=== PATIENT | male | born 1930 | race Caucasian/White ===

== ENCOUNTER 2019-01-10 17:26 | Inpatient (IN) | payer OTHER, MEDICARE ==
[~2019-01-10] VITALS: Ht 167.6 cm; Wt 94.4 kg
[~2019-01-10 17:26] MED LIST: ACID REFLUX MED; ASCO1ER; ATEN25 PO; ATOR40TA; DILT60 PT; ENOX40I SC; KETO60I IV; LEVFLO500 IV; LIDO5TP TOP; LISI20; LORA.5 IV; LOSA25 PO; MAPAP325 MG/10. PO; MELA3 PO; METR500 IV; MULVITMINF; OMEP20ER; OMEPRAZOLE20 MG PO; SIMV40 PO; ZOLP5 PO; [UNRECOGNIZED DRUG - MIXTURE] IV
[2019-01-10] MEDS ORDERED: ASPI81CH PO (17:49)
[2019-01-10] MEDS ORDERED: CARB10OTL BOTHEARS (17:50)
[2019-01-10] MEDS ORDERED: CHOL10002 PO (17:50)
[2019-01-10] MEDS ORDERED: FURO20 PO (17:51)
[2019-01-10] MEDS ORDERED: FINA5 PO (17:51)
[2019-01-10] MEDS ORDERED: THERA1 EACH PO (17:52)
[2019-01-10] MEDS ORDERED: Ginkgo Biloba60 M1 PO (17:52)
[2019-01-10] MEDS ORDERED: Ginseng100 MG PO (17:52)
[2019-01-10] MEDS ORDERED: POTA10T PO (17:54)
[2019-01-10] MEDS ORDERED: Hytrin1 MG PO (17:56)
[2019-01-10] MEDS ORDERED: Triamcinolone A15 G3 TOP (17:57)
[2019-01-10] MEDS ORDERED: Vitamin B Comple1 EA PO (18:20)
[2019-01-10 18:53] LABS: Base Excess Venous 1.3 mmol/L; Bicarbonate Venous 23.9 mmol/L (24.0-30.0); PO2 Venous 52.9 mmHg (38-42); pH Blood Venous 7.28 (7.34-7.37)
[2019-01-11 04:09] LABS: BASOPHILS ABSOLUTE AUTO 0.02 K/mm3 (0.00-0.23); BASOPHILS PERCENT AUTO 0 % (0-2); EOSINOPHILS ABSOLUTE AUTO 0.04 K/mm3 (0.00-0.68); EOSINOPHILS PERCENT AUTO 1 % (0-6); Hematocrit 47.5 % (37.0-53.0); Hemoglobin 13.9 g/dL (13.5-17.5); IMMATURE GRAN ABSOLUTE AUTO 0.02 K/mm3 (0.00-0.10); IMMATURE GRAN PERCENT AUTO 0 % (0-1); LYMPHOCYTES ABSOLUTE AUTO 0.72 K/mm3 (0.84-5.20); LYMPHOCYTES PERCENT AUTO 11 % (21-46); MONOCYTES ABSOLUTE AUTO 0.42 K/mm3 (0.16-1.47); MONOCYTES PERCENT AUTO 7 % (4-13); Mean Corpuscular HGB 29.5 pg (26.0-34.0); Mean Corpuscular HGB Conc 29.3 g/dL (31.5-36.5); Mean Corpuscular Volume 101 fL (80-100); Mean Platelet Volume 11.6 fL (9.1-12.4); NEUTROPHILS ABSOLUTE AUTO 5.21 K/mm3 (1.96-9.15); NEUTROPHILS PERCENT AUTO 81 % (41-73); Platelet Count 112 K/mm3 (150-400); RDW Coefficient Variation 14.6 % (11.7-14.2); RDW Standard Deviation 55.3 fL (35.1-46.3); Red Blood Cell Count 4.71 M/mm3 (4.30-5.90); White Blood Cell Count 6.43 K/mm3 (4.00-11.30)
[2019-01-11 04:46] LABS: Bilirubin, Total 0.7 mg/dL (0.1-1.0); Bun/Creatinine Ratio 33.6 (12.0-20.0); Calcium, Blood 8.3 mg/dL (8.5-10.1); Creatinine, Blood 1.25 mg/dL (0.60-1.20); Globulin, Blood 3.1 g/dL (2.2-4.0); Potassium, Blood 4.8 mmol/L (3.5-5.5); Total Protein, Blood 6.1 g/dL (6.4-8.2)
--- NOTE | 2019-01-11 05:07 | NUR ---
PROVIDER NOTIFIED DR RENAE CALLED REGARDING PT'S HR OF 130'S AFIB DESPITE DIGOXIN DOSING. TOLD PT'S BP HAD RISEN UP TO 130'S SYSTOLICALLY. DR TO PLACE ORDERS FOR DILTIAZEM DRIP.
--- NOTE | 2019-01-11 07:20 | NUR ---
AM ASSESSMENT: Pt resting in bed. LS with fine crackles throughout, sounds gurgly and like he is having a hard time managing his own secretions. Oral suction provided. Pt able to state his birthday and name, states that he is in [place]. Pt disoriented to situation. HR irregular with murmur heard. BT positive. Radial pulses palp, PP very faint. LLE red from cash down and cap refil >3 sec. Family states that he had a wound on this leg and that it looks much better then it has in the past. Slight amount of redness in groin. Pt incontenent of urine. Attends changed and linen changed. Bed alarm on. Call light in reach. WIll mnoitor. Family in room.
--- NOTE | 2019-01-11 08:00 | NUR ---
END OF SHIFT SUMMARY ASSUMED CARE OF PT FROM ED. BP 100'S SYSTOLICALLY. EDDA UP TO 130'S. HR REMAINED AFIB IN 130'S DESPITE 2 DOSES OF ORDERED IV DIGOXIN. DR RENAE CALLED REGARDING THIS, SEE NOTE. PT TRANSFERED TO [facility] FROM [place] DUE TO CARDIZEM DROPPING HIS PRESSURES TO 50/30. CARDIZEM STARTED AT 5MG/HR INITALLY A PRECAUTION. BP HAS REMAINED ABOVE 100 SYSTOLICALLY AT THIS TIME. PT HAS DEMENTIA BASELINE. CONSTANTLY HAS TO HAVE TELE LEADS REPLACED, O2 TUBING REPLACED, ETC. PT'S HR HAS COME DOWN TO 102'S. SHIFT REPORT GIVEN TO ONCOMING NURSE. CALL LIGHT WITHIN REACH. BED ALARM IN PLACE.
[2019-01-11 09:41] LABS: Magnesium, Blood 2.5 mg/dL (1.6-2.4); Troponin I 0.084 ng/mL (0.000-0.040)
[2019-01-11 09:44] LABS: Thyroid Stimulating Hormone 3.4 uIU/mL (0.360-4.800)
[2019-01-11 10:55] LABS: Base Excess Venous 3.4 mmol/L; Bicarbonate Venous 24.5 mmol/L (24.0-30.0); PCO2 Venous 71.7 mmHg (38-42); PO2 Venous 32.3 mmHg (38-42); pH Blood Venous 7.24 (7.34-7.37)
--- NOTE | 2019-01-11 13:22 | NUR ---
UPDATE: Pt lethargic, dozing in bed. Amioderone gtt started per orders. VSS at this time. Bed alarm on. Will monitor.
--- NOTE | 2019-01-11 13:44 | NUR ---
update: Pt placed on bipap per orders R/T VBG results (see lab). Family in room. Pt tolerating amioderone gtt and Bipap at this time, 40% fio2, 20/02. Will continue to monitor.
--- NOTE | 2019-01-11 18:50 | NUR ---
SHIFT SUMMARY: Pt resting in bed with Bipap in place. SBP has remained >100 throughout shift. HR has remained in afib. Rate has improved and is 100-110's. Amioderone gtt is still running at 33.3ml/hr. Pt still has a rash on abd, feet and side. Pt was more alert this AM but became more lathargic as the day progressed. Was placed on bipap due to VBG results. Has tolerated well. Repeat draw ordered for tonight. Pt has had multiple family members in room today. Palliative care has been consulted and ss will be consulted for discharge planning. Stable at this time. Will report to night RN.
--- NOTE | 2019-01-11 20:09 | NUR ---
Pt on bipap met with son about information he had on plan of care. pt son is distraught about care at home. He is the eldest child. pt lives with his step daughter. Son does not know if they have poa. Reviewed his plan of care and medical needs. Did not review prognosis today. Nursing very concerned pt declining. At this time son would like to honor his wishes and continue care but understand if he declines it may be best to have discussion of prognosis and care needs changing to comfort. updated physicians. will update SS pt is a son states no service connection. He feels placement is needed.
[2019-01-11 20:41] LABS: Base Excess Venous 3.5 mmol/L; Bicarbonate Venous 25.3 mmol/L (24.0-30.0); PCO2 Venous 66.8 mmHg (38-42); PO2 Venous 46.3 mmHg (38-42); pH Blood Venous 7.27 (7.34-7.37)
[2019-01-12 04:36] LABS: BASOPHILS ABSOLUTE AUTO 0.04 K/mm3 (0.00-0.23); BASOPHILS PERCENT AUTO 1 % (0-2); EOSINOPHILS ABSOLUTE AUTO 0.14 K/mm3 (0.00-0.68); EOSINOPHILS PERCENT AUTO 2 % (0-6); Hemoglobin 13.8 g/dL (13.5-17.5); IMMATURE GRAN ABSOLUTE AUTO 0.04 K/mm3 (0.00-0.10); IMMATURE GRAN PERCENT AUTO 1 % (0-1); LYMPHOCYTES ABSOLUTE AUTO 0.92 K/mm3 (0.84-5.20); LYMPHOCYTES PERCENT AUTO 12 % (21-46); MONOCYTES ABSOLUTE AUTO 0.68 K/mm3 (0.16-1.47); MONOCYTES PERCENT AUTO 9 % (4-13); Mean Corpuscular HGB 29.9 pg (26.0-34.0); Mean Corpuscular HGB Conc 29.4 g/dL (31.5-36.5); Mean Corpuscular Volume 102 fL (80-100); NEUTROPHILS ABSOLUTE AUTO 5.73 K/mm3 (1.96-9.15); NEUTROPHILS PERCENT AUTO 76 % (41-73); RDW Coefficient Variation 14.6 % (11.7-14.2); RDW Standard Deviation 54.5 fL (35.1-46.3); Red Blood Cell Count 4.62 M/mm3 (4.30-5.90); White Blood Cell Count 7.55 K/mm3 (4.00-11.30)
[2019-01-12 04:39] LABS: Mean Platelet Volume 12.4 fL (9.1-12.4); Platelet Count 78 K/mm3 (150-400)
[2019-01-12 04:52] LABS: Albumin, Blood 2.8 g/dL (3.4-5.0); Anion Gap 1 mmol/L (6-16); Blood Urea Nitrogen 35 mg/dL (8-24); Bun/Creatinine Ratio 25.7 (12.0-20.0); CO2, Blood 33 mmol/L (21-32); Calcium, Blood 8.2 mg/dL (8.5-10.1); Chloride, Blood 113 mmol/L (98-108); Creatinine, Blood 1.36 mg/dL (0.60-1.20); Glomerular Filtration Rate 53 (60-); Glucose, Blood 71 mg/dL (70-99); Phosphorus, Blood 3.6 mg/dL (2.5-4.9); Potassium, Blood 4.5 mmol/L (3.5-5.5); Sodium, Blood 147 mmol/L (136-145)
--- NOTE | 2019-01-12 06:28 | NUR ---
alert at baseline, 2L via BIPAP, call light in reach, infusing via IV, cooperative, wet mixer in to assess, stated he would write orders to DC amiodarone and start on po when able to swallow, will continue to monitor and treat until day shift arrives
--- NOTE | 2019-01-12 07:55 | NUR ---
AM ASSESSMENT: Pt dozing in bed on bipap. VSS. HR afib in rate 100-120. Amioderone gtt discontinued. SBP >100. LS diminished with wheezing and crackles. BT positive. Pulses palp. Pt has red rash on R arm and side, L side of abd and L foot is very red. No change in L abd or L foot rash. R arm and side rash is much larger. Showed physician. Pt incontinent of urine. When he was being changed and cleaned up Pt woke and pulled off Bipap. Maintained 92% on RA. Pt A/O to self, surroundings, family, following directions. Confused to date/year and reason for admission. Pt very cooperative. Notified xray and Pt being taken down for chest xray. Will keep bed alarm on when he returns.
--- NOTE | 2019-01-12 19:42 | NUR ---
SHIFT SUMMARY: Pt sitting up in recliner chair finished with dinner. Pt VSS throughout the shift. Has remained in Afib in a rate of 100-120's. Pt was very alert this am after being woken up and stayed that way until about 1300. At that time pt started to become more drowsy. Pt was placed back on Bipap and tolerated very well. When he was woken up for dinner pt was again very Alert, oriented to person, place, surroundings and self. Pt was able to take oral intake today when he was sitting upright, but still seems to have some swallowing difficulty as well as some reflux. Suction set up at bedside that pt is able to use himself. No other changes this shift. Report given to night RN and care transfered.
--- NOTE | 2019-01-13 00:49 | NUR ---
Assumed care of pt at approx 1900. VSS. pt sitting in recliner at time of shift change, breathing easy and unlabored. Transferred pt from chair to bed with FWW and pt tolerated well. PO medication given per orders and pt able to swallow. Pt has been refusing BIPAP this shift, RT aware, O2 saturations >90% on RA, HOB elevated, pt drifting to sleep on and off this shift. Pt remains incont of bladder, attends in place and dry at this time. Pt is alert and oriented to person/place/time/event but with increasing confusion at times; no sign of distress or discomfort, able to make needs known, uses call light appropriately. See shift assessment for detailed assessment. Rash on body has no changes since initial assessment but this RN will continue to monitor and update as needed.
[2019-01-13 04:24] LABS: BASOPHILS ABSOLUTE AUTO 0.03 K/mm3 (0.00-0.23); BASOPHILS PERCENT AUTO 0 % (0-2); EOSINOPHILS ABSOLUTE AUTO 0.19 K/mm3 (0.00-0.68); EOSINOPHILS PERCENT AUTO 2 % (0-6); Hematocrit 47.9 % (37.0-53.0); Hemoglobin 14.2 g/dL (13.5-17.5); IMMATURE GRAN ABSOLUTE AUTO 0.02 K/mm3 (0.00-0.10); IMMATURE GRAN PERCENT AUTO 0 % (0-1); LYMPHOCYTES ABSOLUTE AUTO 1.11 K/mm3 (0.84-5.20); LYMPHOCYTES PERCENT AUTO 13 % (21-46); MONOCYTES ABSOLUTE AUTO 0.79 K/mm3 (0.16-1.47); MONOCYTES PERCENT AUTO 9 % (4-13); Mean Corpuscular HGB 29.8 pg (26.0-34.0); Mean Corpuscular HGB Conc 29.6 g/dL (31.5-36.5); Mean Corpuscular Volume 101 fL (80-100); NEUTROPHILS ABSOLUTE AUTO 6.28 K/mm3 (1.96-9.15); NEUTROPHILS PERCENT AUTO 75 % (41-73); RDW Coefficient Variation 14.6 % (11.7-14.2); RDW Standard Deviation 54.4 fL (35.1-46.3); Red Blood Cell Count 4.76 M/mm3 (4.30-5.90); White Blood Cell Count 8.42 K/mm3 (4.00-11.30)
[2019-01-13 04:28] LABS: Mean Platelet Volume 12.2 fL (9.1-12.4); Platelet Count 90 K/mm3 (150-400)
[2019-01-13 04:47] LABS: Albumin, Blood 2.9 g/dL (3.4-5.0); Anion Gap 4 mmol/L (6-16); Blood Urea Nitrogen 32 mg/dL (8-24); Bun/Creatinine Ratio 26.9 (12.0-20.0); CO2, Blood 33 mmol/L (21-32); Calcium, Blood 8.3 mg/dL (8.5-10.1); Chloride, Blood 108 mmol/L (98-108); Creatinine, Blood 1.19 mg/dL (0.60-1.20); Glomerular Filtration Rate >60 (60-); Glucose, Blood 87 mg/dL (70-99); Phosphorus, Blood 2.3 mg/dL (2.5-4.9); Potassium, Blood 4.3 mmol/L (3.5-5.5); Sodium, Blood 145 mmol/L (136-145)
--- NOTE | 2019-01-13 05:19 | NUR ---
Shift Summary No acute changes this shift. Pt remains with VSS, denies CP/pressure. No events on tele. Pt did not require bipap this shift, remains >90% on 1L NC. Pt remains A&Ox4, mild confusion consistant with underlying dementia. No neurological changes this shift, no changes in mentation. Pt uses call light appropriately and makes needs known. Incont, currently with clean and dry attends in place. Pt able to reposition self, is a 1 person assist with FWW. Pt denies pain or discomfort and appears as such. Pt sleeping throughout the majority of this shift. Will continue to monitor and update as needed.
--- NOTE | 2019-01-13 13:00 | NUR ---
ASSUMED CARE THIS AM. PT ALERT AND ORIENTED TO SELF, SITUATION, AND FOLLOWING DIRECTIONS. VS STABLE. O2 SATS REMAIN ABOVE 90% ON RA. PT DENIES ANY PAIN. HR AFIB WITH A RATE IN THE 90'S TO 100'S. DR. DICKSON IN TO CHANGE STATUS TO MEDICAL FLOOR AND DC TELEMETRY. REPORT CALLED TO MEDICAL FLOOR RN.
--- NOTE | 2019-01-13 13:25 | NUR ---
PT TAKEN UP BY WHEELCHAIR TO ROOM 310.
--- NOTE | 2019-01-13 14:55 | NUR ---
PATIENT ARRIVED TO THE UNIT VIA W/C. HE IS ALERT AND ORIENTED X3, HE IS IMPULSIVE, BED ALARM IN PLACE. CURRENTLY WORKING WITH THERAPIES.
--- NOTE | 2019-01-13 17:35 | NUR ---
SHIFT SUMMARY PATIENT TRANSFERED TO THE FLOOR. HE HAS WORKED WITH PT/OT. AMBULATE WITH ASSISTANCE WITH FWW. SITTING IN CHAIR. NO ACUTE ISSUES.
--- NOTE | 2019-01-14 04:39 | NUR ---
SHIFT SUMMARY: 88 Y/O MALE HAD RESTLESS NIGHT AT TIMES WITH ONE IV PULLED OUT AND PT CONSTANTLY REMOVING O2 TUBING AND O2 SENSOR FROM FINGERS. PTS NIGHT LIGHT LEFT ON FOR COMFORT WITH BED ALARM APPLIED. PT COOPERATIVE AND FOLLOWED REDIRECTIONS FROM STAFF EASILY, VOIDING VIA URINAL AT BEDSIDE. PT DENIES PAIN OR NAUSEA. PTS BED LOW POSITION, CALL LIGHT AT SIDE. PT CONTINUES TO HAVE RED RASH TO TRUNK, BACK AND FACIAL REGIONS (NO OPEN AREAS NOTED).
[2019-01-14 05:21] LABS: BASOPHILS ABSOLUTE AUTO 0.06 K/mm3 (0.00-0.23); BASOPHILS PERCENT AUTO 1 % (0-2); EOSINOPHILS ABSOLUTE AUTO 0.26 K/mm3 (0.00-0.68); EOSINOPHILS PERCENT AUTO 3 % (0-6); Hematocrit 46.2 % (37.0-53.0); IMMATURE GRAN ABSOLUTE AUTO 0.02 K/mm3 (0.00-0.10); IMMATURE GRAN PERCENT AUTO 0 % (0-1); LYMPHOCYTES ABSOLUTE AUTO 1.19 K/mm3 (0.84-5.20); LYMPHOCYTES PERCENT AUTO 15 % (21-46); MONOCYTES ABSOLUTE AUTO 0.83 K/mm3 (0.16-1.47); MONOCYTES PERCENT AUTO 11 % (4-13); Mean Corpuscular HGB 29.7 pg (26.0-34.0); Mean Corpuscular HGB Conc 30.3 g/dL (31.5-36.5); NEUTROPHILS ABSOLUTE AUTO 5.46 K/mm3 (1.96-9.15); NEUTROPHILS PERCENT AUTO 70 % (41-73); RDW Coefficient Variation 14.6 % (11.7-14.2); RDW Standard Deviation 53.3 fL (35.1-46.3); Red Blood Cell Count 4.71 M/mm3 (4.30-5.90); White Blood Cell Count 7.82 K/mm3 (4.00-11.30)
[2019-01-14 05:24] LABS: Mean Corpuscular Volume 98 fL (80-100); Mean Platelet Volume 12.4 fL (9.1-12.4); Platelet Count 68 K/mm3 (150-400)
[2019-01-14 05:31] LABS: Albumin, Blood 2.9 g/dL (3.4-5.0); Anion Gap 3 mmol/L (6-16); Blood Urea Nitrogen 30 mg/dL (8-24); Bun/Creatinine Ratio 27.3 (12.0-20.0); CO2, Blood 32 mmol/L (21-32); Calcium, Blood 8.2 mg/dL (8.5-10.1); Chloride, Blood 110 mmol/L (98-108); Glomerular Filtration Rate >60 (60-); Glucose, Blood 106 mg/dL (70-99); Phosphorus, Blood 2.3 mg/dL (2.5-4.9); Potassium, Blood 4.2 mmol/L (3.5-5.5); Sodium, Blood 145 mmol/L (136-145)
--- NOTE | 2019-01-14 19:33 | NUR ---
SHIFT SUMMARY: NO ACUTE CHANGES TO REPORT THIS SHIFT. PT ALERT; ORIENTED TO SELF AND FAMILY. IV ABX CONTINUING. REPORT GIVEN TO ONCOMING RN.
[2019-01-15] MEDS ORDERED: Sulfamethoxazo1 EAC4 PO (00:08)
--- NOTE | 2019-01-15 04:11 | NUR ---
SHIFT SUMMARY: 88 Y/O MALE RESTED COMFORTABLY ALL SHIFT. PT ALERT PERSON ONLY, ABLE TO FOLLOW SIMPLE VERBAL COMMANDS ONLY, PT ABLE TO AMBULATE TO BATHROOM AND BACK TO VOID ONCE THIS SHIFT WITH GAIT SLOW AND STEADY. PT WORE O2 AT 2L/M PER NASAL CANNULA WITH SATS AVERAGING 93%. PT DENIES PAIN OR NAUSEA. PTS BED ALARM APPLIED, BED LOW POSITION, CALL LIGHT AT SIDE. PT TOOK ALL SCHEDULED MEDS WITHOUT ISSUE.
[2019-01-15 05:04] LABS: BASOPHILS ABSOLUTE AUTO 0.07 K/mm3 (0.00-0.23); BASOPHILS PERCENT AUTO 1 % (0-2); EOSINOPHILS ABSOLUTE AUTO 0.32 K/mm3 (0.00-0.68); EOSINOPHILS PERCENT AUTO 4 % (0-6); Hematocrit 50.5 % (37.0-53.0); Hemoglobin 15.1 g/dL (13.5-17.5); IMMATURE GRAN ABSOLUTE AUTO 0.01 K/mm3 (0.00-0.10); IMMATURE GRAN PERCENT AUTO 0 % (0-1); LYMPHOCYTES ABSOLUTE AUTO 1.67 K/mm3 (0.84-5.20); LYMPHOCYTES PERCENT AUTO 19 % (21-46); MONOCYTES PERCENT AUTO 10 % (4-13); Mean Corpuscular HGB 29.4 pg (26.0-34.0); Mean Corpuscular HGB Conc 29.9 g/dL (31.5-36.5); Mean Corpuscular Volume 98 fL (80-100); Mean Platelet Volume 12.3 fL (9.1-12.4); NEUTROPHILS ABSOLUTE AUTO 5.83 K/mm3 (1.96-9.15); NEUTROPHILS PERCENT AUTO 66 % (41-73); Platelet Count 101 K/mm3 (150-400); RDW Coefficient Variation 14.8 % (11.7-14.2); RDW Standard Deviation 53.5 fL (35.1-46.3); Red Blood Cell Count 5.13 M/mm3 (4.30-5.90)
[2019-01-15 05:40] LABS: Albumin, Blood 3.1 g/dL (3.4-5.0); Anion Gap 2 mmol/L (6-16); Blood Urea Nitrogen 29 mg/dL (8-24); Bun/Creatinine Ratio 26.9 (12.0-20.0); CO2, Blood 34 mmol/L (21-32); Calcium, Blood 8.5 mg/dL (8.5-10.1); Chloride, Blood 108 mmol/L (98-108); Creatinine, Blood 1.08 mg/dL (0.60-1.20); Glomerular Filtration Rate >60 (60-); Glucose, Blood 102 mg/dL (70-99); Phosphorus, Blood 2.2 mg/dL (2.5-4.9); Potassium, Blood 4.3 mmol/L (3.5-5.5); Sodium, Blood 144 mmol/L (136-145)
--- NOTE | 2019-01-15 12:31 | NUR ---
HE HAS WALKED IN THE ROOM, PADDLED A W/C TO THE END OF THE [place]ON[place], AND WALKED ON THE STEPS WITH PT IN THEIR DEPT. HE IS RESTLESS AND WANTS TO GO HOME. HE HAS HAD 5 VISITORS SO FAR TODAY. LABS WNL.KNEE TEDS APPLIED. JUST SPOKE WITH . OXIMETRY AND BIPAP ORDER DC'D.
--- NOTE | 2019-01-15 13:21 | NUR ---
BACK TO BED AFTER BEING UP IN THE W/C THE PAST 2 HRS. NO COMPLAINTS.
--- NOTE | 2019-01-15 18:38 | NUR ---
HIS RASH SHOWED NO IMPROVEMENT OVER THE DAY BUT HE DOESN'T COMPLAIN ABOUT IT. NO CHANGES TODAY, THOUGH CONTINUOUS BIOX WAS DC'D. VSS. AFIB TACHY BUT CONTROLLED.
--- NOTE | 2019-01-16 05:28 | NUR ---
THIS RN RECIEVED REPORT FROM JESSIE ALBERT. PT TO ROOM 348 AT THIS TIME. IS ALERT AND ORIENTED X1. OREINTED TO ROOM AND CALL LIGHT, BED ALARM SET. WILL CTM AND REPORT TO DAY RN
--- NOTE | 2019-01-16 05:30 | NUR ---
0520 PT TRANSFERRED TO RM 348 VIA WHEELCHAIR WITH ALL PERSONAL BELONGINGS. REPORT GIVEN TO TASH CRANDALL RN [id number] THIS NURSE CALLED DAUGHTER IN LAW GAGAN HUSAIN AT [phone] AND ADVISED OF PATIENT MOVE TO RM 348 (NO CHANGE IN MEDICAL CONDITION).
--- NOTE | 2019-01-16 05:38 | NUR ---
0400 88 Y/O MALE HAD RESTLESS NIGHT WITH PATIENT FREQUENTLY SITTING AT SIDE AND ATTEMPTING WALK WITH BED ALARM ALERTING STAFF. PT IS PLEASANTLY CONFUSED, ABLE TO REDIRECT EASILY, ALERT TO PERSON ONLY. PT CONTINUES TO HAVE RED RASH TO TRUNK/BACK AND FACIAL REGIONS (REDNESS SLOWLY DECREASING). PT SL LFA COVERED WITH COBAN PATIENT KEEPS VOICING URGE TO REMOVE THIS DEVICE. PT DENIES PAIN OR NAUSEA. PTS BED ALARM APPLIED, BED LOW POSITION, CALL LIGHT AT SIDE.
--- NOTE | 2019-01-16 16:47 | NUR ---
PT IS A/OX3, PLEASANT AND COOPERATIVE, IS FORGETFULL AT TIMES AND SOMULANT AT TIMES, THE PT APPEARS TO BE BREATHING EASILY ON RA, THE PT WAS UP MOSTLY ALL DAY IN HIS WHEELCHAIR OUT ON THE UNIT, THE PT DENIED ANY PAIN, THE PTS HAS A RASH COVERING MOST OF HIS UPPER TORSO AND ARMS, ORDERED CREAM WAS APPLIED THIS AM, FAMILY WAS IN TO SEE THE PT, DR. KIRK WAS IN TO SEE THE PT, WILL CONTINUE TO MONITOR AND ASSESS FOR CHANGES
--- NOTE | 2019-01-17 05:01 | NUR ---
SHIFT SUMMARY A/O, ABLE TO MAKE NEEDS KNOWN. COOPERATIVE WITH CARE. ANSWERS QUESTIONS APPROPRIATELY. DOES NOT USE CALL LIGHT, JUST GETS UP UNEXPECTEDLY. APPEARED TO REST OFF AND ON THROUGHOUT SHIFT. RASH T/O BODY; WHEN ASKED PATIENT STATED IT DID NOT ITCH; KENALOG CREAM PLACED THROUHGOUT. NO ACUTE CHANGES OVERNIGHT. VSS/AFEBRILE. UP IN CHAIR SINCE 0. WCTM. REPORT TO ONCOMING RN.
[2019-01-17 05:19] LABS: BASOPHILS ABSOLUTE AUTO 0.06 K/mm3 (0.00-0.23); BASOPHILS PERCENT AUTO 1 % (0-2); EOSINOPHILS ABSOLUTE AUTO 0.12 K/mm3 (0.00-0.68); EOSINOPHILS PERCENT AUTO 1 % (0-6); Hemoglobin 15.4 g/dL (13.5-17.5); IMMATURE GRAN ABSOLUTE AUTO 0.04 K/mm3 (0.00-0.10); IMMATURE GRAN PERCENT AUTO 0 % (0-1); LYMPHOCYTES ABSOLUTE AUTO 1.22 K/mm3 (0.84-5.20); LYMPHOCYTES PERCENT AUTO 12 % (21-46); MONOCYTES ABSOLUTE AUTO 0.75 K/mm3 (0.16-1.47); MONOCYTES PERCENT AUTO 8 % (4-13); Mean Corpuscular HGB 29.8 pg (26.0-34.0); Mean Corpuscular HGB Conc 29.6 g/dL (31.5-36.5); NEUTROPHILS ABSOLUTE AUTO 7.75 K/mm3 (1.96-9.15); NEUTROPHILS PERCENT AUTO 78 % (41-73); RDW Coefficient Variation 14.8 % (11.7-14.2); RDW Standard Deviation 55.5 fL (35.1-46.3); Red Blood Cell Count 5.16 M/mm3 (4.30-5.90); White Blood Cell Count 9.94 K/mm3 (4.00-11.30)
[2019-01-17 05:39] LABS: Albumin, Blood 3.2 g/dL (3.4-5.0); Anion Gap 4 mmol/L (6-16); Blood Urea Nitrogen 33 mg/dL (8-24); Bun/Creatinine Ratio 32.7 (12.0-20.0); CO2, Blood 29 mmol/L (21-32); Calcium, Blood 8.7 mg/dL (8.5-10.1); Chloride, Blood 110 mmol/L (98-108); Creatinine, Blood 1.01 mg/dL (0.60-1.20); Glomerular Filtration Rate >60 (60-); Glucose, Blood 100 mg/dL (70-99); Phosphorus, Blood 3.2 mg/dL (2.5-4.9); Potassium, Blood 4.7 mmol/L (3.5-5.5); Sodium, Blood 143 mmol/L (136-145)
[2019-01-17 06:04] LABS: Mean Corpuscular Volume 101 fL (80-100); Platelet Count 116 K/mm3 (150-400)
--- NOTE | 2019-01-17 17:44 | NUR ---
SHIFT SUMMARY. A&OX3, INTERMITTENT CONFUSION, EASILY REDIRECTABLE, PLEASANT, BED/CHAIR ALARM ACTIVATED FOR SAFETY. PT HAS BEEN CONTINENT. DENIES SOB, N/V, AND PAIN. HOME O2 EVAL COMPLETED BY RT, PT DID NOT QUALIFY FOR HOME O2, MD NOTIFIED. UP TO CHAIR FOR ALL MEALS. CM AND DR. GONZALES ATTEMPTED TO CONTACT IMELDA, PT'S PRIMARY SEAFOOD TECHNOLOGY SPECIALIST, ALTHOUGH WERE UNSUCCESSFUL. DR. GONZALES NOTIFIED THIS RN THAT D/C WILL NEED TO BE HELD UNTIL TOMORROW.
--- NOTE | 2019-01-17 19:30 | NUR ---
SHIFT CHANGE: SEBASTIAN WAS ALERT AND ORIENTED WITH OCCATIONAL FORGETFULNESS. PLEASANT AND COOPERATIVE. ASSESSMENT DONE AT SAME TIME VITALS. PATIENT WAS LABORED BREATHING AT FIRST, RESP 22, SATS RANGING IN 84-92%, LUNG SOUNDS ARE DIMINISHED, COUGH OCCATIONAL. NONPRODUCTIVE. HR ELEVATED IN THE 110-120'S IRREGULAR AFIB. BLOOD PRESSURE ALSO ELEVATED. HE DENIED FEELING SOB, OR HAVING TROUBLE BREATHING. HE DENIED ANY CHEST PAIN OR DISCOMFORT. REPOSITIONED HIM IN BED AND PLACED A FAN ON HIM. RECHECKED HIS VITALS AND THEY IMPROVED WITH STILL ELEVATION OF BLOOD PRESSURE TO 152/116. PULSE 105 REST WERE IN NORMAL RANGE. SKIN COVERED WITH FLAT RED RASH FROM BACK TO FACE, LEGS, GROIN AND ARMS.
--- NOTE | 2019-01-18 05:47 | NUR ---
SHIFT CHANGE: PATIENT AOX3, DIFFICULT TO UNDERSTAND AT TIMES, INTERMITTENT CONFUSION, BUT IS EASILY REDIRECTED. BED ALARM ACTIVATED PER SAFETY. PAT HAS BEEN CONTIENT. PATIENT DID SHOW ELEVATION IN IS VITALS AT BEGINING OF THE SHIFT, BUT ON RETAKE THE VITALS WERE WNL. HE SAT UP IN HIS CHAIR FOR SHORT PERIODS OF TIMES. HE WAS PLEASANT AND COOPERATIVE, AND SLEPT T/O THE NIGHT. NO OTHER ACUTE CHANGES HAVE OCCURED. WILL REPORT TO ONCOMING SHIFT
[2019-01-18] MEDS ORDERED: LISI5 PO (12:50)
[2019-01-18] MEDS ORDERED: METO25ER PO (12:51)
--- NOTE | 2019-01-18 17:38 | NUR ---
SHIFT SUMMARY. 1730 PT DISCHARGED HOME VIA PERSONAL VEHICLE ACCOMPANIED AND DRIVEN BY FAMILY. IV REMOVED. NEW RX FAXED TO [facility]. D/C PAPERWORK REVIEWED WITH FAMILY AND COPY PROVIDED. NO NEW CHANGES OR CONCERNS.
== END 2019-01-18 17:33 | disposition home or self-care (01) | DRG 291 ==
LOC: ER 17:26 → PCU 20:13 → MEDS 20:13 → EDBEDREQ 20:19 → PCU 21:28 → MEDS 01-13 13:40
PROVIDERS: Emergency Medicine; Family Medicine; ADMIT Hospitalist
PROC: 5A09457 Assistance with Respiratory Ventilation, 24-96 Consecutive Hours, Continuous Positive Airway Pressure (ICD-10-PCS; principal; 2019-01-10)
DX: I11.0 Hypertensive heart disease with heart failure (principal); J96.01 Acute respiratory failure with hypoxia; I50.31 Acute diastolic (congestive) heart failure; J18.9 Pneumonia, unspecified organism; J96.02 Acute respiratory failure with hypercapnia; N17.9 Acute kidney failure, unspecified; E87.0 Hyperosmolality and hypernatremia; I48.2 Chronic atrial fibrillation; K21.9 Gastro-esophageal reflux disease without esophagitis; I35.0 Nonrheumatic aortic (valve) stenosis; F03.90 Unspecified dementia, unspecified severity, without behavioral disturbance, psychotic disturbance, mood disturbance, and anxiety; E78.5 Hyperlipidemia, unspecified; F32.9 Major depressive disorder, single episode, unspecified; F17.210 Nicotine dependence, cigarettes, uncomplicated; Z66 Do not resuscitate; Z86.73 Personal history of transient ischemic attack (TIA), and cerebral infarction without residual deficits; D69.49 Other primary thrombocytopenia; E86.0 Dehydration
CPT/HCPCS: 36415; 71045; 71046; 80053; 80069; 82803; 83605; 83735; 83880; 84145; 84443; 84484; 85025; 87040; 92526; 92610; 93005; 93010; 93306; 93970; 94660; 94762; 96361; 96374; 97110; 97116; 97161; 97165; 97530; 97535; 99285-25; J0282; J0456; J0696; J1160; J1650; J7030; J7050; J7060

== ENCOUNTER 2019-01-19 23:06 | Inpatient (IN) | payer OTHER ==
[~2019-01-19] VITALS: Ht 210.8 cm; Wt 91.5 kg
[~2019-01-19 23:06] MED LIST changes: +ASPI81CH PO; +CARB10OTL BOTHEARS; +CHOL10002 PO; +FINA5 PO; +FURO20 PO; +Ginkgo Biloba60 M1 PO; +Ginseng100 MG PO; +Hytrin1 MG PO; +LISI5 PO; +METO25ER PO; +POTA10T PO; +Sulfamethoxazo1 EAC4 PO; +THERA1 EACH PO; +Triamcinolone A15 G3 TOP; +Vitamin B Comple1 EA PO
[2019-01-19 23:33] LABS: BASOPHILS ABSOLUTE AUTO 0.02 K/mm3 (0.00-0.23); BASOPHILS PERCENT AUTO 0 % (0-2); EOSINOPHILS ABSOLUTE AUTO 0.01 K/mm3 (0.00-0.68); EOSINOPHILS PERCENT AUTO 0 % (0-6); Hemoglobin 14.9 g/dL (13.5-17.5); IMMATURE GRAN ABSOLUTE AUTO 0.08 K/mm3 (0.00-0.10); IMMATURE GRAN PERCENT AUTO 1 % (0-1); LYMPHOCYTES ABSOLUTE AUTO 0.92 K/mm3 (0.84-5.20); LYMPHOCYTES PERCENT AUTO 11 % (21-46); MONOCYTES PERCENT AUTO 12 % (4-13); Mean Corpuscular HGB 29.9 pg (26.0-34.0); Mean Corpuscular HGB Conc 29.8 g/dL (31.5-36.5); Mean Corpuscular Volume 100 fL (80-100); NEUTROPHILS ABSOLUTE AUTO 6.64 K/mm3 (1.96-9.15); NEUTROPHILS PERCENT AUTO 77 % (41-73); NRBC ABSOLUTE 0.02 K/mm3 (0.00-0.02); NRBC Auto 0.2 /100 WBC (0.0-0.2); RDW Coefficient Variation 15.3 % (11.7-14.2); Red Blood Cell Count 4.98 M/mm3 (4.30-5.90); White Blood Cell Count 8.67 K/mm3 (4.00-11.30)
[2019-01-19 23:39] LABS: Mean Platelet Volume 12.2 fL (9.1-12.4); Platelet Count 88 K/mm3 (150-400)
[2019-01-19 23:55] LABS: Potassium, Blood 5.3 mmol/L (3.5-5.5); Troponin I 0.095 ng/mL (0.000-0.040)
[2019-01-19 23:56] LABS: Albumin, Blood 2.9 g/dL (3.4-5.0); Bilirubin, Total 0.6 mg/dL (0.1-1.0); Bun/Creatinine Ratio 31.2 (12.0-20.0); Calcium, Blood 8.6 mg/dL (8.5-10.1); Creatinine, Blood 1.92 mg/dL (0.60-1.20); Total Protein, Blood 5.9 g/dL (6.4-8.2)
--- NOTE | 2019-01-20 03:15 | NUR ---
Admission/Paia of Care: Patient arrived to unit at 0300hr via stretcher, accompanied by ED nurse. Unresponsive to verbal or painful stimuli upon arrival, but did moan/grimace during urinary catheter insertion at 0330hr. Family reports patient has been unresponsive most of the day. Arrived on BiPAP /6/40%, O2-94-98% Confirmed DNR/DNI status with daughter Nirali at bedside. Rubin cath patent and intact, draining dark yellow cloudy urine, sample for UA sent to lab per protocol. Peripheral IV to Rt AC patent and intact. Received order per Dr. Marquez for Amiodarone bolus and gtt, per A-fibb/RVR 100-140's. Systolic BP high 70's-90's, MAPs- 70's. Diffuse rash noted to ABD, BUE's, and back. Family states rash is r/t allergic medication reaction from recent/previous hospital admission. Family also states rash is improving, photo's taken and placed in chart. Will continue to monitor for pain, safety, comfort.
[2019-01-20 04:30] LABS: Source, Urine Catheter
[2019-01-20 04:32] LABS: Bilirubin, Urine Neg (Neg); Blood, Urine 4+ (Neg); Glucose Qualitative, Urine Neg (Neg); Ketones, Urine Neg (Neg); Leukocyte Esterase, Urine 1+ (Neg); Nitrite, Urine Neg (Neg); Protein, Urine 1+ (Neg); Specific Gravity, Urine 1.015 (1.003-1.022); Urobilinogen, Urine NORM (Normal)
[2019-01-20 04:38] LABS: Appearance, Urine Hazy (Clear); Color, Urine Yellow (P-Yellow)
[2019-01-20 04:39] LABS: Bacteria Many /hpf; Red Blood Cells, Urine 25-50 /hpf (0-2); Squamous Epithelial Cells Not Seen /hpf (Few)
[2019-01-20 04:40] LABS: Hyaline Casts 50-100 /lpf (0-2); Mucus Light (0-Heavy)
[2019-01-20 05:42] LABS: PCO2 Arterial 61.8 mmHg (35-45); PO2 Arterial 110 mmHg (80-100); pH Blood Arterial 7.31 (7.35-7.45)
--- NOTE | 2019-01-20 06:05 | NUR ---
Shift Summary: Patient slept well throughout shift. Continues to deny pain, discomfort, SOB, or dyspnea throughout shift, VSS. Rt groin access site remains wnl, no s/s of active bleeding/hematoma. Adjust own position in bed, makes needs known. Sleeping at this time. Will continue to monitor until report to day shift RN.
--- NOTE | 2019-01-20 07:00 | NUR ---
ASSUMED CARE PT. MOANS TO VERBAL STIMULI. NOT FOLLOWING COMMANDS AT THIS TIME. OPENS EYES TO PAINFUL STIMULI. PT LUNG SOUNDS DIM AND CURRENTLY ON BIPAP WITH AVAPS SETTING AT THIS TIME. PT. BP HYPOTENSIVE THIS AM, WITH MAP >60. AWARE AND AWAITING FAMILY DECISION FOR POSSIBLE CENTRAL LINE PLACEMENT. PT CURRENTLY DNR/DNI FAMILY AWAITING ADDITIONAL FAMILY MEMBERS TO MAKE DECISION FOR HOSPICE.
--- NOTE | 2019-01-20 07:25 | NUR ---
Shift Summary: Patient remains unresponsive throughout remainder of shift but shows increased gross movement of extremities and occasionally moaning. Morning ABG showed likely respiratory acidosis, RT Dennis changed BiPAP to AVAPS mode 14-30/6/40%, patient now pulling more consistent tidal volumes 500-600, O2-93-97%. Systolic BP 60's-90's, MAPs 60's-70's throughout remainder of shift. Contacted Dr. Marquez this morning r/t continued low BP's and changes made to BiPAP. Dr. Marquez states how patient's family did not wish to place central line, and that he thinks the patient need vasopressor medications and would not tolerate additional IV fluids r/t severe aortic valve stenosis. Instructed to continue to monitor at this time and update family. Call placed to patient's daughter Nirali. Informed Nirali of patient's status and the possible need for medications to increase BP. Nirali states she would call her sister and they would both come to the hospital, plan to talk with day shift hospitalist/nursing staff about options moving forward with patient's care. Report given to day shift RN Mercedes.
--- NOTE | 2019-01-20 09:00 | NUR ---
DR. WOODALL AT BEDSIDE TO TALK WITH FAMILY STILL AWAITING FAMILY MEMBERS FOR DECISION MAKING FOR HOPSICE. DIGITAL LEARNING PLATFORMS MANAGER CONSULTED FOR CONFLICT WIHT PT PLACEMENT IF HE GOES HOME ON HOPSICE.
--- NOTE | 2019-01-20 09:15 | NUR ---
COMFORT CARE PT SON AT BEDSIDE, TALKING ON PHONE TO OTHER TWO BROTHERS UPDATING ON PT CONDITION. PER FAMILY AT THIS TIME THEY WOULD LIKE TO MAKE PT COMFORT CARE AND PROCEED WITH GETTING PT HOME ON HOSPICE. CREAM MAKER NOTIFIED. DR. WOODALL UPDATED WELL. CARE MANAGEMENT NOTIFIED OF FAMILY CONCERNS REGARDING PT RETURNING TO PREVIOUS HOME. CARE MANAGEMENT TO ADDRESS POSSIBLE SHELTER/ HOSPICE NEEDS.
--- NOTE | 2019-01-20 10:16 | NUR ---
PT TAKEN OFF BIPAP AND HEART MONITOR. PLANS FOR TRANSFER TO MEDICAL FLOOR ROOM 329.
--- NOTE | 2019-01-20 10:27 | NUR ---
LIDOCAINE PATCH PLACED TO LOWER BACK THICKENED LIQUIDS PROVIDED PER FAMILY REQUEST.
--- NOTE | 2019-01-20 10:34 | NUR ---
REPORT CALLED TO MEDICAL FLOOR RN PT TO BE TRANSFERRED TO MEDICAL FLOOR ROOM 329. FAMILY AWARE. ALL BELONGINGS TAKEN WITH PT.
--- NOTE | 2019-01-20 10:49 | NUR ---
TRANSFER NOTE RECEIVED REPORT FROM JESSIE HOANG IN ICU. PT TRANSITIONING TO COMFORT CARE AND BEING TRANSFERED TO MED UNIT. PT TO ROOM VIA BED AT 1045, 3 PERSON TRANSFER WITH SLIDER SHEET. PT SPONDING WITH SINGLE WORD ANSWER TO VERBAL STIMULI. ON 2L O2 VIA NC, RESP 20, NO APENIC EPISODES NOTED, LS DIM. PT REPOSITIONED. NO S/SX OF DISTRESS NOTED AT THIS TIME. DUMONT IN PLACE AND DRAINING. RASH T/O. WILL CONTINUE TO MONITOT.
--- NOTE | 2019-01-20 16:09 | NUR ---
SHIFT SUMMARY PT RESTING IN BED, OPENING EYES AND ANSWER QUESTIONS AT TIMES. REPOSITION FOR COMFORT. BREATHING TACHYPENIC AT TIMES, NO APNEA NOTED. NO S/SX OF DISTRESS NOTED. ORAL CARE AND BED BATH COMPLETED DURING SHIFT. WILL CONTINUE TO MONITOR UNTIL REPORT GIVEN TO ONCOMING RN.
--- NOTE | 2019-01-20 18:20 | NUR ---
HE IS ASLEEP IN THE BED AND LOOKS COMFORTABLE. RASH VERY EVIDENT. HIS GRANDSON IS ASLEEP IN THE RECLINER. NO SIGNS OF DISTRESS AT THIS TIME.
--- NOTE | 2019-01-20 18:23 | NUR ---
1730 NOTE HE IS ASLEEP AND LOOKS COMFORTABLE. NO RESP DISTRESS. BODY RASH IS VERY EVIDENT. GRANDSON IS IN THE RECLINER CHAIR, ALSO ASLEEP.
--- NOTE | 2019-01-20 18:25 | NUR ---
HE SAID A SHORT SENTENCE AND WAS APPROPRIATE. WE REPOSITIONED HIM ON HIS R SIDE. HE WAS TRYING TO SCOOT ONTO HIS BACK A LITTLE BEFORE WE EVEN LEFT THE ROOM. DUMONT BAG EMPTIED OF 900 MLS. WARM BLANKET GIVEN TO PATIENT BY HIS REQUEST. GRANDSON ALSO WOKE UP. COMFORT CARE CART IS IN THE ROOM FOR FAMILY.
--- NOTE | 2019-01-20 18:36 | NUR ---
Pal Spiritual Care inital visit: Mr. Sparrow was non-responsive, but appears [eaceful. His grandson, Pedro was at bedside. Pedro was soft-spoken and very polite. He says he has been taking care of pt. He admitted to me this was hard for him. He was tearful, but appropriate. Pedro responded well to encouragement, genetic counselor and emotional affirmation. I complimented him on his obvious care and attention to his grand-dad. Pedro is non-yazdanism, but responded well to me. I brought recliner and something for him to eat/drink. Encouraged questions and making needs known. Senior Cytotechnologist services will remain available.
--- NOTE | 2019-01-21 07:19 | NUR ---
comfort care, call light in reach, family in room, kvo with no s/sx of infection or infiltration, room air
--- NOTE | 2019-01-21 07:48 | NUR ---
PATIENT IN NO APPARENT DISTRESS. NO DYSPNEA/SECRETIONS. FAMILY IN ROOM. WCTM.
--- NOTE | 2019-01-21 08:57 | NUR ---
NO C/O PAIN. NO DYSPNEA/SECRETIONS. FAMILY IN ROOM. WCTM.
[2019-01-21] MEDS ORDERED: Colace100 MG PO (09:26)
[2019-01-21] MEDS ORDERED: ONDA4ODT MM (09:27)
[2019-01-21] MEDS ORDERED: MORP20L SL (09:27)
--- NOTE | 2019-01-21 09:51 | NUR ---
PATIENT DISCHARGE: PATIENT DISCHARGED HOME WITH [facility]. MEDICATION RECONCILIATION COMPLETED; [facility] DISCHARGE EDUCATION COMPLETED WITH PATIENT AND FAMILY. PATIENT DEPARTED MEDICAL FLOOR [facility] AT 0943. PATIENT DEPARTED [facility].
== END 2019-01-21 09:45 | disposition home or self-care (01) | DRG 291 ==
LOC: ER 23:06 → ICUW 01-20 01:47 → ICUE 01-20 03:04 → MEDS 01-20 10:38
PROVIDERS: Emergency Medicine; ADMIT Internal Medicine
PROC: 5A09357 Assistance with Respiratory Ventilation, Less than 24 Consecutive Hours, Continuous Positive Airway Pressure (ICD-10-PCS; principal; 2019-01-20)
DX: I11.0 Hypertensive heart disease with heart failure (principal); J96.01 Acute respiratory failure with hypoxia; J69.0 Pneumonitis due to inhalation of food and vomit; I50.43 Acute on chronic combined systolic (congestive) and diastolic (congestive) heart failure; F03.90 Unspecified dementia, unspecified severity, without behavioral disturbance, psychotic disturbance, mood disturbance, and anxiety; Z66 Do not resuscitate; I95.9 Hypotension, unspecified; K21.9 Gastro-esophageal reflux disease without esophagitis; I48.91 Unspecified atrial fibrillation; I35.0 Nonrheumatic aortic (valve) stenosis; J44.9 Chronic obstructive pulmonary disease, unspecified; I69.391 Dysphagia following cerebral infarction; R13.10 Dysphagia, unspecified; Z51.5 Encounter for palliative care; F32.9 Major depressive disorder, single episode, unspecified; I42.9 Cardiomyopathy, unspecified
CPT/HCPCS: 36600; 70450; 71045; 80053; 81001; 82803; 83880; 84484; 85025; 87086; 93005; 93010; 94660; 96361; 96365; 96375; 99285-25; J0282; J1940; J2543; J7030; J7060